=== PATIENT | male | born 1970 | race African-American/Black ===

== ENCOUNTER 2020-11-27 05:32 | Emergency (ER) | payer SELFPAY ==
[~2020-11-27] VITALS: Ht 160 cm; Wt 67.0 kg
[2020-11-27] MEDS ORDERED: SODIUM CHLORIDE 0.9% 1,000ML IVBOLUS ONE (06:00)
[2020-11-27] MEDS ORDERED: ONDANSETRON 2MG/ML, 2ML IVPush ONE (06:00)
[2020-11-27] MEDS ORDERED: SODIUM CHLORIDE FLUSH 10ML SYR IVF ONE (06:00)
[2020-11-27] MEDS ORDERED: MAALOX/HYOSCYAMINE/LIDOCAINE 45 ML BTL PO ONE (06:00)
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
[2020-11-27] MEDS ORDERED: ONDANSETRON 2MG/ML, 2ML ONE (06:26)
[2020-11-27] MEDS ORDERED: MAALOX/HYOSCYAMINE/LIDOCAINE 45 ML BTL ONE (06:26)
[2020-11-27 06:29] LABS: BASOPHILS % (AUTO) 1 % (0-1); EOSINOPHILS % (AUTO) 0 % (1-7); LYMPHOCYTES % (AUTO) 11 % (22-44); MD NO; MEAN CORPUSCULAR HEMOGLOBIN 30.5 pg (27.5-34.5); MEAN CORPUSCULAR HGB CONC 34.2 g/dL (33.2-36.2); MEAN PLATELET VOLUME 9.1 fL (7.4-10.4); MONOCYTES % (AUTO) 5 % (2-9); NEUTROPHILS % (AUTO) 84 % (42-75); PLATELET COUNT 177 x10^3/uL (130-400); RED BLOOD COUNT 5.08 x10^6/uL (4.38-5.82); RED CELL DISTRIBUTION WIDTH 13.8 % (9.4-14.8)
[2020-11-27] MEDS ORDERED: PLEASE ENTER HEIGHT AND WEIGHT MC SCH (06:30)
--- NOTE | 2020-11-27 06:37 | NUR ---
FLUIDS RUNNING. PT MEDICATED FOR NAUSEA AND ABD PAIN. UA SENT TO LAB. CALL LIGHT IN REACH
[2020-11-27 06:39] LABS: ALANINE AMINOTRANSFERASE 26 U/L (12-78); ALBUMIN 3.8 g/dL (3.4-5.0); ANION GAP 4 mmol/L (5-15); CALCIUM 9.2 mg/dL (8.5-10.1); CHLORIDE 110 mmol/L (98-107); CREATININE 1.13 mg/dL (0.7-1.3)
[2020-11-27 06:41] LABS: ALKALINE PHOSPHATASE 83 U/L (45-117); BILIRUBIN,TOTAL 0.4 mg/dL (0.2-1.0); TOTAL PROTEIN 7.9 g/dL (6.4-8.2)
[2020-11-27 06:43] LABS: MICROSCOPIC NOT IND
[2020-11-27 06:55] LABS: AMPHETAMINE SCREEN, URINE Negative (Negative); BARBITURATE SCREEN, URINE Negative (Negative); BENZODIAZEPINE SCREEN, URINE Negative (Negative); CANNABINOID SCREEN, URINE Positive (Negative); COCAINE SCREEN, URINE Negative (Negative); METHADONE SCREEN, URINE Negative (Negative); OPIATE SCREEN, URINE Negative (Negative)
--- NOTE | 2020-11-27 07:00 | NUR ---
REPORT FROM MICHAEL CASTRO. JANEY. JEAN PAUL. PT TO BATHROOM WITH STEADY GAIT.
[2020-11-27 07:31] VITALS: BP 139/94
--- NOTE | 2020-11-27 08:06 | NUR ---
Patient given discharge instructions and they have confirmed that they understand the instructions. Patient ambulatory with steady gait.
== END 2020-11-27 08:07 | disposition home or self-care (01) ==
LOC: ED 07:30
DX: R55 Syncope and collapse (principal)
CPT/HCPCS: 36415; 80053; 80307; 81003; 83690; 85025; 96361; 96374; 99283; J2405; J7030